=== PATIENT | male | born 1955 ===

== ENCOUNTER 2019-04-22 15:13 | Inpatient (IN) ==
[2019-04-22] MEDS ORDERED: IOPAMIDOL 100 ML BOTTLE IV ONE ×2 (15:14→18:51)
--- NOTE | 2019-04-22 16:14 | Emergency Department Note ---
Abdominal Pain HPI - General Chief Complaint: Abdominal Pain Stated Complaint: abdominal pain, nausea Time Seen by Provider: 04/22/19 15:43 Source: patient Mode of arrival: wheelchair Limitations: no limitations - History of Present Illness HPI Narrative: This 64-year-old male comes emergency room with right lower quadrant pain that began yesterday. He describes it as bad including 9 out of 10 pain although he is able to sit up without difficulties. He had one episode that was not as sharp about 3 months ago. When the pain is really severe and stabbing in nature his right knee wants to come up i.e. flexion at the hip. There has been some associated nausea but no vomiting. No diarrhea. There is no change in the pain with bowel movements or emptying his bladder. He denies dysuria or frequency. Pain is worse with movement or coughing. There sometimes is radiation to the left towards the bellybutton. He has not taken any medications for this. He has had 2 normal bowel movements today. He felt like he had a fever last evening as well as some sweatiness. No chills/shivers. REVIEW OF SYSTEMS: Denies chest pain, shortness of breath, constipation, hematochezia, dysuria, anxiety. Does suffer from chronic depression for which he takes medication. - Related Data Allergies Allergy/AdvReac Type Severity Reaction Status Date / Time ibuprofen AdvReac Mild Rash Verified 04/22/19 15:17 Abdominal Pain PMH - Past Medical History [facility] Narrative: Medical History (Last Updated 04/22/19 @ 16:12 by Ted Mcnally DO) Peripheral arterial disease (Chronic) COPD (chronic obstructive pulmonary disease) (Chronic) Hyperlipidemia (Chronic) Cigarette smoker (Chronic) Hypertension, essential (Chronic) Past Surgical History (Last Updated 04/22/19 @ 16:13 by Ted Mcnally DO) History of femoropopliteal bypass (Acute) S/P above knee amputation (Acute) Family History (Last Updated 04/22/19 @ 16:14 by Ted Mcnally DO) Mother Peripheral arterial disease Father Carotid artery disease Lung cancer Myocardial infarction Psychiatric history: Reports: depression. Denies: anxiety - Social History Smoking status: Current every day smoker Alcohol use: Reports: Rarely Drug use: Reports: none. Denies: marijuana Physical Exam Limitations: no limitations General appearance: alert, cachectic, in no apparent distress, other (quite thin) Head: atraumatic, normocephalic Eye: Present: PERRL, EOMI. Absent: scleral icterus, conjunctival injection ENT: mucous membranes moist, other (edentulous) Neck: Present: trachea midline. Absent: lymphadenopathy, thyromegaly Chest: Present: symmetric chest wall rise Respiratory: Present: other (Lung sounds are quite distant.). Absent: respiratory distress, wheezes, stridor, accessory muscle use, prolonged expiratory phase Cardiovascular: Present: regular rate, normal rhythm, other (Heart sounds are somewhat distant.). Absent: systolic murmur, diastolic murmur Abdominal: Present: soft, tenderness (Right lower quadrant moderate to severe), guarding (Right lower quadrant moderate), rebound (Right lower quadrant moderate). Absent: distention, rigidity, organomegaly, mass Extremities: Present: other (Atrophic right lower extremity. Above the knee amputation on the left.) Back: Present: other (Is able to sit up fairly easily.). Absent: CVA tenderness (R), CVA tenderness (L), spinous process tenderness Neurological: Present: alert, oriented X3 Psychiatric: Present: flat affect. Absent: depressed, agitated, anxious Skin: Present: warm, dry Course Vital Signs Temperature 97.9 F 04/22/19 15:14 Pulse Rate 60 04/22/19 15:14 Respiratory Rate 22 04/22/19 15:14 Blood Pressure 134/77 04/22/19 15:14 Pulse Oximetry (%) 97 04/22/19 15:14 Temperature 97.9 F 04/22/19 15:14 Pulse Rate 54 L 04/22/19 17:16 Respiratory Rate 22 04/22/19 15:14 Blood Pressure 111/67 04/22/19 17:16 Pulse Oximetry (%) 97 04/22/19 17:16 Abdominal Pain - [facility] Narrative Medical decision making narrative: 3 3 8 PM - right lower quadrant pain that is moderately severe. Patient has his appendix. We will do labs and ultrasound. He is quite thin so hopefully ultrasound is all that will be necessary. 5:00 PM approximately - network technical analyst reveals that patient has borderline enlargement of the appendix X 6 mm but was unable to see the tip. There is lots of bowel around the area. It was quite positive on exam as far as pain. Labs include normal white count, CRP less than 0.3, unremarkable CMP except for a calcium of 8.1. 5:10 PM - we will discuss the above with surgeon. Consider additional imaging versus surgical intervention based on above. 5:23 PM - I spoke with Dr. Marshall about circumstances. He recommends going ahead with CT scan of the pelvis and observation this is being arranged. Patient is agreeable. He would like something for pain control. - Lab Data Lab results reviewed: Yes I reviewed the patient's lab results. Result diagrams: 04/22/19 15:30 04/22/19 15:30 Lab Results 04/22/19 04/22/19 04/22/19 Range/Units 15:30 15:30 15:30 WBC 4.8 (4.5-11.0) K/mcL RBC 4.74 (4.50-5.90) M/mcL Hgb 13.4 L (13.5-16.5) g/dL Hct 41.4 (41.0-55.0) % MCV 87.4 (80.0-100.0) fL MCH 28.3 (26.0-34.0) pg MCHC 32.4 (31.0-36.0) g/dL RDW 15.9 H (11.5-14.5) % Plt Count 204 (140-440) K/mcL MPV 8.8 (7.4-10.4) fL Total Counted 100 Seg Neutrophils % 63 (38-78) % Band Neutrophils % 3 (0-10) % Lymphocytes % 20 (15-49) % Monocytes % (Manual) 9 (1-12) % Eosinophils % (Manual) 3 (0-7) % Basophils % (Manual) 1 (0-2) % Reactive Lymphocytes 1 (0-2) % Platelet Estimate Normal (NORMAL) RBC Morphology Normal (NORMAL) Sodium 141 (133-145) mmol/L Potassium 4.1 (3.3-5.1) mmol/L Chloride 104 (96-108) mmol/L Carbon Dioxide 29 (22-30) mmol/L Anion Gap 8.0 (8-16) BUN 10 (8-23) mg/dl Creatinine 0.9 (0.7-1.2) mg/dl GFR Calculation 91 Glucose 96 (70-105) mg/dL Calcium 8.1 L (8.6-10.4) mg/dl Total Bilirubin 0.3 (0.0-1.0) mg/dL AST 23 (0-37) U/l ALT 31 (0-40) U/l Alkaline Phosphatase 98 (39-117) U/L C-Reactive Protein < 0.3 (0.0-0.8) mg/dl Total Protein 5.9 (5.9-8.4) gm/dL Albumin 3.3 (3.2-5.2) gm/dL Globulin 2.6 (2.2-3.7) gm/dL Albumin/Globulin Ratio 1.3 (1.0-2.3) - Radiology Data Radiology results reviewed: Yes I reviewed the patient's radiology results. Disposition Pt seen by INSIDE SALES EXECUTIVE/PA only: No Clinical Impression: Abdominal pain, RLQ, Hypocalcemia Summary: With patient having the degree of discomfort that he has he is being admitted for additional observation and or treatment. CT scan is pending. Dr. Aime Marshall, general surgeon, has kindly patient's care while in hospital. No antibiotics are needed at this point in time. Disposition: Xfer As Outpt/Obs ([facility]) Condition: Fair
[2019-04-22 16:21] LABS: Hematocrit 41.4 % (41.0-55.0); Hemoglobin 13.4 g/dL (13.5-16.5); Mean Cell Volume 87.4 fL (80.0-100.0); Mean Corpuscular HGB Conc 32.4 g/dL (31.0-36.0); Mean Platelet Volume 8.8 fL (7.4-10.4); Platelet Count 204 K/mcL (140-440); RBC 4.74 M/mcL (4.50-5.90); Red Cell Distribution Width 15.9 % (11.5-14.5); WBC 4.8 K/mcL (4.5-11.0)
[2019-04-22 16:44] LABS: Band Neutrophils % 3 % (0-10); Basophils % (Manual) 1 % (0-2); Eosinophils % (Manual) 3 % (0-7); Lymphocytes % 20 % (15-49); Monocytes % (Manual) 9 % (1-12); Platelet Estimate NORMAL (NORMAL); RBC Morphology NORMAL (NORMAL); Reactive Lymphocytes 1 % (0-2); Segmented Neutrophils % 63 % (38-78)
[2019-04-22 16:48] LABS: ALT/SGPT 31 U/l (0-40); AST/SGOT 23 U/l (0-37); Albumin 3.3 gm/dL (3.2-5.2); Albumin/Globulin Ratio 1.3 (1.0-2.3); Alkaline Phosphatase 98 U/L (39-117); Bilirubin,Total 0.3 mg/dL (0.0-1.0); Blood Urea Nitrogen 10 mg/dl (8-23); Calcium 8.1 mg/dl (8.6-10.4); Carbon Dioxide 29 mmol/L (22-30); Chloride 104 mmol/L (96-108); Globulin 2.6 gm/dL (2.2-3.7); Glomerular Filtration Rate 91; Glucose 96 mg/dL (70-105)
--- NOTE | 2019-04-22 17:18 | Ultrasound Report ---
CLINICAL INFORMATION: RLQ abdom pain COMPARISON: None. FINDINGS: There are multiple enlarged mesenteric lymph nodes in the right lower quadrant ranging up to 2.3 cm. Small amount of fluid is seen in this region. Appendix not visualized IMPRESSION: Moderate adenopathy in the right lower quadrant with free fluid. Suggest abdomen /pelvic CT for further evaluation. Appendix not visualized Interpreted and Authenticated by: Sebastián Patino 04/22/19
[2019-04-22] MEDS ORDERED: NALOXONE HCL 0.4 MG/ML VIAL IV PRN (17:25)
[2019-04-22] MEDS ORDERED: ONDANSETRON 4 MG/2 ML VIAL IV PRN (17:25)
[2019-04-22] MEDS ORDERED: 0.9 % SODIUM CHLORIDE 1,000 ML IV SCH (17:30)
--- NOTE | 2019-04-22 18:10 | Cat Scan Report ---
CLINICAL INFORMATION: Right lower quadrant pain COMPARISON: None. TECHNIQUE: [place] use of enteric contrast. 100 cc of Optiray 320 were injected intravenously and 25 seconds later 2.5 mm helical slices were obtained from the mid L4 through the subtrochanteric regions. Following reconstruction, 2.5 mm sagittal, coronal and axial reformations were processed. The exam was reviewed in bone and soft tissue windows. The exam was performed using radiation dose optimization techniques including, but not limited to, automated exposure control, adjustment of mA and/or kV according to patient size and use of iterative reconstruction technique. FINDINGS: The visualized small and large bowel within the false and true pelvis is unremarkable. Appendix is, unfortunately, not identified with certainty but there is is no inflammation in the region of the appendix. No free fluid or free air. Few minimally enlarged mesenteric lymph nodes appreciated Prostate, seminal vesicles and urinary bladder are unremarkable. The abdominal aorta is normal in diameter with very heavy atherosclerotic plaque. There are scattered stenoses within the right common and external iliac arteries ranging up to 50%. the proximal aspect of a left femoral popliteal bypass graft is occluded. [place] left superficial femoral artery is also occluded at the left left leg is ischemic. The proximal limb of the left femoral popliteal bypass graft is widely patent. The left SFA is occluded proximally. IMPRESSION: 1. Appendix not visualized, however there is no inflammation in the region of the appendix. Mild ileus pattern noted 2. Proximal end of the left femoral popliteal bypass graft is occluded. The superficial femoral artery on the left side is also occluded which could result in left leg ischemia. There are scattered stenoses within the right common and external iliac artery ranging up to 50%. Interpreted and Authenticated by: Sebastián Patino 04/22/19
[2019-04-22] MEDS ORDERED: PROMETHAZINE 25 MG/ML VIAL IV PRN (20:03)
[2019-04-22] MEDS ORDERED: ZOLPIDEM 5 MG TABLET PO PRN (20:05)
--- NOTE | 2019-04-22 20:28 | General Surg History&Physical ---
History of Present Illness Patient information: Note initiated : 04/22/19 at 8:26 pm Service Date, if different from initiated Date: [] Patient: Jayjay Kirkland a 64 y/o M admitted on 04/22/19 for abdominal pain, nausea. Chief Complaint: [] HPI: Mr. Kirkland is a 64 year old M admitted with abdominal pain. The patient had onset of right lower quadrant and right subcostal abdominal pain on yesterday. He had nausea but no vomiting. He gives a history of having 70 pound weight loss over the past 4 months. He states that he has regular bowel movements. He does have postprandial crampy abdominal pain that lasts up to 10-15 minutes after he eats. This is usually of diffuse pain. He denies rectal bleeding and he denies having thin stools. He is admitted for additional testing and follow- up. Review of Systems All systems PM: reviewed and no additional remarkable complaints except as stated (except as noted below) - Constitutional anorexia, fatigue, malaise, weakness, weight loss (70 pound weight loss over 4 months) - EENT Nose, mouth and throat: bleeding gums, dental pain - Cardiovascular chest pain at rest, chest pain with activity, other (chest pain with stress and with activity with last episode of chest pain 2 weeks ago) - Respiratory dyspnea on exertion - Gastrointestinal abdominal pain, cramping, early satiety, heartburn, nausea - Genitourinary nocturia - Musculoskeletal arthralgias - Neurological numbness, paresthesias, restless legs - Psychiatric anxiety, depression, mood swings - Hematologic/Lymphatic no easy bleeding, no easy bruising, no lymphadenopathy (was) Past History Past medical history: Severe peripheral vascular disease. Chronic obstructive lung disease. Hypertension. Coronary artery disease status post myocardial infarction 2 months ago, status post cardiac catheter at [facility] in [place], [place] 2 months ago Past surgical history: Left femoropopliteal bypass graft. Left [id number] amputation. Right femoral-popliteal bypass graft Past family history: Carotid artery disease with stroke. History of lung cancer. Peripheral vascular disease. Coronary artery disease Past social history: Disabled. Tobacco use up to 15 cigarettes per day. Alcohol use Medications and Allergies Home Medications Medication Instructions Recorded Confirmed Type Escitalopram [Lexapro] 10 mg PO DAILY 04/22/19 04/22/19 History Gabapentin [Neurontin] 800 mg PO TID 04/22/19 04/22/19 History Hydrocodone/APAP 7.5/325Mg [[place] 1 tab PO Q4HP PRN 04/22/19 04/22/19 History 7.5-325Mg] Pantoprazole Sodium [Protonix] 40 mg PO BID 04/22/19 04/22/19 History Allergies Allergy/AdvReac Type Severity Reaction Status Date / Time ibuprofen AdvReac Mild Rash Verified 04/22/19 15:17 Exam Temp Pulse Resp BP Pulse Ox 97.9 F 56 L 22 124/70 98 04/22/19 19:05 04/22/19 19:05 04/22/19 19:05 04/22/19 19:05 04/22/19 19:05 - General physical appearance moderate distress, severe pain, cachectic, chronically ill - Eyes PERRL, normal ocular movement - ENT normal pinna, normal nares, normal mucosa, no congestion, decreased hearing, poor fci - Head Head exam IM: Present: atraumatic, normal inspection, normocephalic - Neck no masses, no bruits, trachea midline, no lymphadenopathy, no venous distension - Cardiovascular Cardiovascular exam IM: Present: normal rate and rhythm, RRR, +S1, +S2. Absent: JVD, tachycardia - Respiratory normal expansion, normal respiratory effort, other (distant breath sounds bilaterally but no rales, rubs, rhonchi, no wheezes) - Abdomen Abdomen: Present: soft, tender (severe right upper quadrant and subcostal tenderness; moderately severe epigastric tenderness; moderately severe right lower quadrant tenderness. No palpable masses), bowel sounds, guarding. Absent: masses Hernia: Present: none - Genitourinary Present: normal penis with no external lesions - Integumentary Present: no rash, no growths, no abnormal pigmentation - Neurologic Present: normal coordination, normal sensation - Musculoskeletal Present: other (above knee amputation. Left leg) - Psychiatric Present: oriented to time, oriented to person, oriented to place, speech is normal, memory intact Assessment and Plan (1) Right upper quadrant abdominal pain Upper abdominal ultrasound to evaluate gallbladder. Completion of upper abdominal CT to evaluate stomach and duodenum and colon. Repeat CRP, lactate, and baseline labs in the morning Status: Acute (2) Peripheral vascular disease of lower extremity Status: Acute (3) Abdominal pain, RLQ Status: Acute (4) COPD (chronic obstructive pulmonary disease) Status: Chronic (5) Peripheral arterial disease Hold liquids until sure about potential for operative therapy Status: Chronic Comment: severe (6) Coronary artery disease Obtained report of cardiac catheter done at [facility] 2 months ago and get records of hospitalization of myocardial infarction from 2 months ago. Continue home medications. Check EKG Status: Acute Qualifiers: Coronary Disease-Associated Artery/Lesion type: [place] artery [place] vs. transplanted heart: [place] heart Associated angina: with stable angina Qualified Code(s): I25.118 - Atherosclerotic heart disease of [place] coronary artery with other forms of angina pectoris
[2019-04-22] MEDS ORDERED: GABAPENTIN 300 MG CAPSULE PO SCH (21:00)
[2019-04-22] MEDS: GABAPENTIN 400 MG CAPSULE PO SCH (21:42)
[2019-04-22] MEDS: 0.9 % SODIUM CHLORIDE 1,000 ML IV SCH (21:42)
[2019-04-22] MEDS: AMITRIPTYLINE 10 MG TABLET PO SCH (21:42)
--- NOTE | 2019-04-23 04:19 | XRay Report ---
CLINICAL INFORMATION: COPD and preop COMPARISON: None. FINDINGS: The heart size, mediastinum and pulmonary vessels are unremarkable. The lungs are clear. There are no effusions. The bones and soft tissues are within normal limits. IMPRESSION: Normal chest. Interpreted and Authenticated by: Sebastián Patino 04/23/19
[2019-04-23] MEDS: 0.9 % SODIUM CHLORIDE 1,000 ML IV SCH ×4 (04:46→18:51)
--- NOTE | 2019-04-23 05:14 | Cat Scan Report ---
CLINICAL INFORMATION: Right upper quadrant pain COMPARISON: None. TECHNIQUE: Following water enteric contrast, 80 cc of Isovue-300 were injected intravenously, and 60 seconds later, 0.625 mm helical slices were obtained from the mid heart through the subtrochanteric regions. Following reconstruction, 2.5 mm sagittal, coronal and axial reformatted images were processed and reviewed at bone, lung and soft tissue windows. Five minutes later, 0.625 mm helical slices were obtained from the mid heart through the kidneys and viewed at soft tissue windows.The exam was performed using radiation dose optimization techniques including, but not limited to, automated exposure control, adjustment of the mA and/or kV according to patient size and use of iterative reconstruction technique. FINDINGS: Lung bases show emphysema thickening chronic bronchitis, multiple bullae and scarring. No infiltrates. No effusions. The visualized heart is normal in size and there is moderately heavy calcification in the visualized coronary arteries. Abdominal images show scattered simple cysts throughout the liver ranging up to 15 mm in the left hepatic lobe. There is asymmetric prominence of the lateral segment left hepatic lobe which extends to the left upper quadrant. Gallbladder and bile ducts are normal: CBD is 5 mm. Both kidneys, adrenal glands, spleen and pancreas are normal in size, configuration and attenuation without focal lesion. There is moderately heavy atherosclerotic calcification and fibrofatty plaque in the abdominal aorta which is normal diameter - 18 mm. Aortic branches shows scattered atherosclerotic plaque. There appears to be mild wall thickening of the cecum and proximal ascending colon. This could be an artifact of under distention rather than pathologic infiltration. The remaining visualized colon and small bowel are grossly normal. Appendix not visualized on this upper abdominal exam. There is no free air, free fluid and no adenopathy. Bone windows show no osseous abnormality. IMPRESSION: 1. Mild wall thickening of the cecum and proximal ascending colon which may be artifact of underdistention. Suggest colonoscopy. 2. Scattered hepatic cysts ranging up to 14 mm. 3. COPD 4. Moderate atherosclerotic disease. Please consider aggressive identification and treatment of atherosclerotic risk factors Interpreted and Authenticated by: Sebastián Patino 04/23/19
--- NOTE | 2019-04-23 05:26 | Ultrasound Report ---
CLINICAL INFORMATION: upper abdominal ultrasound COMPARISON: None. FINDINGS: Liver is normal in size, configuration and echotexture with scattered cysts throughout the hepatic parenchyma ranging up to 1.8 cm the left hepatic lobe. Gallbladder and bile ducts are normal: CBD is 5 mm. Pancreas obscured by bowel gas. No free fluid IMPRESSION: Scattered hepatic cysts. The liver, gallbladder bile ducts are, otherwise, normal. Pancreas not visualized Interpreted and Authenticated by: Sebastián Patino 04/23/19
[2019-04-23 05:42] LABS: Basophils # (Auto) 0 K/mcL (0.0-0.3); Basophils % (Auto) 0.7 % (0.0-2.0); Eosinophils # (Auto) 0.5 K/mcL (0.0-0.7); Eosinophils % (Auto) 8.5 % (0.0-7.0); Granulocytes % (Auto) 55.1 % (38.0-78.0); Hematocrit 37.8 % (41.0-55.0); Hemoglobin 12.3 g/dL (13.5-16.5); Lymphocytes # (Auto) 1.4 K/mcL (1.5-4.8); Lymphocytes % (Auto) 25.8 % (15.5-49.0); Mean Cell Volume 88.1 fL (80.0-100.0); Mean Corpuscular HGB Conc 32.4 g/dL (31.0-36.0); Mean Platelet Volume 9.5 fL (7.4-10.4); Monocytes # (Auto) 0.5 K/mcL (0.1-0.9); Monocytes % (Auto) 9.9 % (1.0-12.0); Platelet Count 189 K/mcL (140-440); RBC 4.29 M/mcL (4.50-5.90); Red Cell Distribution Width 16.5 % (11.5-14.5); WBC 5.5 K/mcL (4.5-11.0)
[2019-04-23 05:58] LABS: ALT/SGPT 22 U/l (0-40); AST/SGOT 18 U/l (0-37); Albumin 2.9 gm/dL (3.2-5.2); Albumin/Globulin Ratio 1.3 (1.0-2.3); Alkaline Phosphatase 90 U/L (39-117); Bilirubin,Direct < 0.2 mg/dL (0.0-0.3); Bilirubin,Total 0.4 mg/dL (0.0-1.0); Blood Urea Nitrogen 9 mg/dl (8-23); C-Reactive Protein < 0.3 mg/dl (0.0-0.8); Carbon Dioxide 28 mmol/L (22-30); Chloride 105 mmol/L (96-108); Globulin 2.3 gm/dL (2.2-3.7); Glomerular Filtration Rate 80; Glucose 76 mg/dL (70-105); Lactate Dehydrogenase 210 U/L (94-250); Phosphorous 4.4 mg/dL (2.7-4.5); Triglycerides 112 mg/dl (<150)
[2019-04-23] MEDS: PANTOPRAZOLE 40 MG TABLET PO SCH ×2 (08:33→18:08)
[2019-04-23] MEDS: GABAPENTIN 400 MG CAPSULE PO SCH ×3 (08:33→20:17)
--- NOTE | 2019-04-23 16:42 | General Surgery Progress Note ---
Subjective Patient reports: still having pain, pain is less, flatus, bowel movement, afebrile Narrative: Note initiated : 04/23/19 at 4:42 pm Service Date, if different from initiated Date: [] Patient: Jayjay Kirkland 64 y/o M admitted on 04/22/19 for abdominal pain, nausea. Chief Complaint: [patient still complains of right lower quadrant and right subcostal abdominal pain. He has less nausea. He has passed gas and has, had a bowel movement. There is no rectal bleeding. He denies nausea at this time. Follow-up CT of the upper abdomen last evening was unremarkable for acute process. Upper abdominal ultrasound was negative for gallbladder disease. Serum lactate 0.5, white blood count 5.5, CRP less than 0.3, inpatient panel totally normal.] Objective Temp Pulse Resp BP Pulse Ox 97.8 F 49 L 14 107/59 96 04/23/19 16:00 04/23/19 16:00 04/23/19 16:00 04/23/19 16:00 04/23/19 16:00 - Additional Data Intake & Output - Last 24 hours: Intake & Output 04/21/19 04/22/19 04/23/19 04/24/19 05:59 05:59 05:59 05:59 Intake Total 1000 1000 Output Total 950 800 Balance 50 200 Weight 80 lb - General physical appearance moderate pain, cachectic, chronically ill - Eyes PERRL, normal ocular movement - ENT normal pinna, normal nares, normal mucosa, no hearing loss, no congestion - Neck no masses, no bruits, trachea midline, no lymphadenopathy, no venous distension - Respiratory normal expansion, normal respiratory effort, clear to auscultation - Cardiovascular Cardiovascular exam: Present: normal rate and rhythm, RRR, +S1, +S2. Absent: JVD, tachycardia - Abdomen tender (tenderness in right subcostal region and right lower quadrant; good active bowel sounds; no abdominal distention) - Integumentary no rash, no growths, no abnormal pigmentation - Musculoskeletal other - Psychiatric oriented to time, oriented to person, oriented to place, speech is normal, memory intact - Labs 04/23/19 03:36 04/23/19 03:36 Diabetes panel 04/22/19 04/23/19 Range/Units 15:30 03:36 Sodium 141 142 (133-145) mmol/L Potassium 4.1 4.5 (3.3-5.1) mmol/L Chloride 104 105 (96-108) mmol/L Carbon Dioxide 29 28 (22-30) mmol/L BUN 10 9 (8-23) mg/dl Creatinine 0.9 1.0 (0.7-1.2) mg/dl Glucose 96 76 (70-105) mg/dL Calcium 8.1 L 8.0 L (8.6-10.4) mg/dl AST 23 18 (0-37) U/l ALT 31 22 (0-40) U/l Alkaline Phosphatase 98 90 (39-117) U/L Total Protein 5.9 5.2 L (5.9-8.4) gm/dL Albumin 3.3 2.9 L (3.2-5.2) gm/dL Triglycerides 112 (<150) mg/dl Calcium panel 04/22/19 04/23/19 Range/Units 15:30 03:36 Calcium 8.1 L 8.0 L (8.6-10.4) mg/dl Phosphorus 4.4 (2.7-4.5) mg/dL Albumin 3.3 2.9 L (3.2-5.2) gm/dL Pituitary panel 04/22/19 04/23/19 Range/Units 15:30 03:36 Sodium 141 142 (133-145) mmol/L Potassium 4.1 4.5 (3.3-5.1) mmol/L Chloride 104 105 (96-108) mmol/L Carbon Dioxide 29 28 (22-30) mmol/L BUN 10 9 (8-23) mg/dl Creatinine 0.9 1.0 (0.7-1.2) mg/dl Glucose 96 76 (70-105) mg/dL Calcium 8.1 L 8.0 L (8.6-10.4) mg/dl Adrenal panel 04/22/19 04/23/19 Range/Units 15:30 03:36 Sodium 141 142 (133-145) mmol/L Potassium 4.1 4.5 (3.3-5.1) mmol/L Chloride 104 105 (96-108) mmol/L Carbon Dioxide 29 28 (22-30) mmol/L BUN 10 9 (8-23) mg/dl Creatinine 0.9 1.0 (0.7-1.2) mg/dl Glucose 96 76 (70-105) mg/dL Calcium 8.1 L 8.0 L (8.6-10.4) mg/dl Total Bilirubin 0.3 0.4 (0.0-1.0) mg/dL AST 23 18 (0-37) U/l ALT 31 22 (0-40) U/l Alkaline Phosphatase 98 90 (39-117) U/L Total Protein 5.9 5.2 L (5.9-8.4) gm/dL Albumin 3.3 2.9 L (3.2-5.2) gm/dL Assessment and Plan (1) Right upper quadrant abdominal pain Status: Acute Assessment and plan: Start dicyclomine 4 times daily. Start clear liquids Current Visit: Yes (2) Peripheral vascular disease of lower extremity Status: Acute Current Visit: Yes (3) Abdominal pain, RLQ Status: Acute Current Visit: Yes (4) COPD (chronic obstructive pulmonary disease) Status: Chronic Current Visit: No (5) Peripheral arterial disease Problem details: severe Status: Chronic Current Visit: No (6) Coronary artery disease Status: Acute Current Visit: Yes - Time Spent With Patient Total time spent is greater than 50% in coordination of care (as documented) at patient's floor/unit and/or counseling patient:
[2019-04-23] MEDS: DICYCLOMINE 20 MG TABLET PO SCH ×2 (18:08→20:17)
[2019-04-23] MEDS: HYDROmorphone 2 MG/ML VIAL IV PRN (19:31)
[2019-04-23] MEDS: AMITRIPTYLINE 10 MG TABLET PO SCH (20:17)
[2019-04-24] MEDS: 0.9 % SODIUM CHLORIDE 1,000 ML IV SCH ×5 (01:42→11:56)
[2019-04-24 05:27] LABS: Basophils # (Auto) 0 K/mcL (0.0-0.3); Basophils % (Auto) 0.9 % (0.0-2.0); Eosinophils # (Auto) 0.4 K/mcL (0.0-0.7); Eosinophils % (Auto) 7.5 % (0.0-7.0); Granulocytes % (Auto) 61.9 % (38.0-78.0); Hematocrit 35.2 % (41.0-55.0); Hemoglobin 11.3 g/dL (13.5-16.5); Lymphocytes # (Auto) 1.2 K/mcL (1.5-4.8); Lymphocytes % (Auto) 23.3 % (15.5-49.0); Mean Cell Volume 88.7 fL (80.0-100.0); Mean Corpuscular HGB Conc 32.1 g/dL (31.0-36.0); Mean Platelet Volume 8.7 fL (7.4-10.4); Monocytes # (Auto) 0.3 K/mcL (0.1-0.9); Monocytes % (Auto) 6.4 % (1.0-12.0); Platelet Count 173 K/mcL (140-440); RBC 3.97 M/mcL (4.50-5.90); Red Cell Distribution Width 16.2 % (11.5-14.5); WBC 5.4 K/mcL (4.5-11.0)
[2019-04-24 05:55] LABS: ALT/SGPT 20 U/l (0-40); AST/SGOT 17 U/l (0-37); Albumin 2.6 gm/dL (3.2-5.2); Albumin/Globulin Ratio 1.2 (1.0-2.3); Alkaline Phosphatase 78 U/L (39-117); Bilirubin,Direct < 0.2 mg/dL (0.0-0.3); Bilirubin,Total 0.4 mg/dL (0.0-1.0); Blood Urea Nitrogen 8 mg/dl (8-23); Calcium 7.2 mg/dl (8.6-10.4); Carbon Dioxide 25 mmol/L (22-30); Chloride 108 mmol/L (96-108); Globulin 2.1 gm/dL (2.2-3.7); Glomerular Filtration Rate 100; Glucose 61 mg/dL (70-105); Lactate Dehydrogenase 147 U/L (94-250); Phosphorous 3.8 mg/dL (2.7-4.5); Triglycerides 76 mg/dl (<150); Uric Acid 5.6 mg/dL (2.5-8.0)
--- NOTE | 2019-04-24 07:15 | XRay Report ---
CLINICAL INFORMATION: COPD and preop COMPARISON: 04/22/2019 FINDINGS: Heart size, mediastinum and pulmonary vessels are normal. COPD changes with minor atelectasis left base. No infiltrates. No effusions IMPRESSION: Stable COPD. No acute disease Interpreted and Authenticated by: Sebastián Patino 04/24/19
[2019-04-24] MEDS: PANTOPRAZOLE 40 MG TABLET PO SCH ×2 (07:58→16:58)
[2019-04-24] MEDS: HYDROmorphone 2 MG/ML VIAL IV PRN ×2 (07:58→12:01)
[2019-04-24] MEDS: DICYCLOMINE 20 MG TABLET PO SCH ×4 (09:42→20:54)
[2019-04-24] MEDS: GABAPENTIN 400 MG CAPSULE PO SCH ×3 (09:42→20:54)
--- NOTE | 2019-04-24 12:24 | General Surgery Progress Note ---
Subjective Patient reports: feels better, pain is less, tolerating liquids well, flatus, bowel movement, afebrile Narrative: Note initiated : 04/24/19 at 12:22 pm Service Date, if different from initiated Date: [] Patient: Jayjay Kirkland 64 y/o M admitted on 04/22/19 for abdominal pain, nausea. Chief Complaint: [patient feels better. Most of his right upper quadrant discomfort has resolved. He denies nausea. He does complain of some pelvic pressure and dysuria with voiding. He still has some right flank pain. He is passed gas and had bowel movements. He remains afebrile. White blood count 5.4, hemoglobin 11.3, hematocrit 30 5..] Objective Temp Pulse Resp BP Pulse Ox 98.0 F 48 L 20 108/65 95 04/24/19 06:21 04/24/19 04:17 04/24/19 06:21 04/24/19 06:21 04/24/19 06:21 - Additional Data Intake & Output - Last 24 hours: Intake & Output 04/22/19 04/23/19 04/24/19 04/25/19 05:59 05:59 05:59 05:59 Intake Total 1000 2650 3320 Output Total 950 1300 325 Balance 50 1350 2995 Weight 80 lb 87 lb - General physical appearance moderate pain, cachectic, chronically ill - Eyes PERRL, normal ocular movement - ENT normal pinna, normal nares, normal mucosa, no congestion, decreased hearing - Neck no masses, no bruits, trachea midline, no lymphadenopathy, no venous distension - Respiratory normal expansion, normal respiratory effort, clear to auscultation - Cardiovascular Cardiovascular exam: Present: normal rate and rhythm, bradycardia, RRR, +S1, +S2. Absent: JVD, tachycardia - Abdomen tender (mild tenderness lateral right lower quadrant and right flank; minimal tenderness right upper quadrant; good active bowel sounds) - Integumentary no rash, no growths, no abnormal pigmentation - Musculoskeletal other (. Left [id number] amputation; atrophy, right lower extremity; poor peripheral perfusion, right lower extremity) - Psychiatric oriented to time, oriented to person, oriented to place, speech is normal, memory intact - Labs 04/24/19 04:15 04/24/19 04:15 Diabetes panel 04/24/19 Range/Units 04:15 Sodium 141 (133-145) mmol/L Potassium 4.1 (3.3-5.1) mmol/L Chloride 108 (96-108) mmol/L Carbon Dioxide 25 (22-30) mmol/L BUN 8 (8-23) mg/dl Creatinine 0.7 (0.7-1.2) mg/dl Glucose 61 L (70-105) mg/dL Calcium 7.2 L (8.6-10.4) mg/dl AST 17 (0-37) U/l ALT 20 (0-40) U/l Alkaline Phosphatase 78 (39-117) U/L Total Protein 4.7 L (5.9-8.4) gm/dL Albumin 2.6 L (3.2-5.2) gm/dL Triglycerides 76 (<150) mg/dl Calcium panel 04/24/19 Range/Units 04:15 Calcium 7.2 L (8.6-10.4) mg/dl Phosphorus 3.8 (2.7-4.5) mg/dL Albumin 2.6 L (3.2-5.2) gm/dL Pituitary panel 04/24/19 Range/Units 04:15 Sodium 141 (133-145) mmol/L Potassium 4.1 (3.3-5.1) mmol/L Chloride 108 (96-108) mmol/L Carbon Dioxide 25 (22-30) mmol/L BUN 8 (8-23) mg/dl Creatinine 0.7 (0.7-1.2) mg/dl Glucose 61 L (70-105) mg/dL Calcium 7.2 L (8.6-10.4) mg/dl Adrenal panel 04/24/19 Range/Units 04:15 Sodium 141 (133-145) mmol/L Potassium 4.1 (3.3-5.1) mmol/L Chloride 108 (96-108) mmol/L Carbon Dioxide 25 (22-30) mmol/L BUN 8 (8-23) mg/dl Creatinine 0.7 (0.7-1.2) mg/dl Glucose 61 L (70-105) mg/dL Calcium 7.2 L (8.6-10.4) mg/dl Total Bilirubin 0.4 (0.0-1.0) mg/dL AST 17 (0-37) U/l ALT 20 (0-40) U/l Alkaline Phosphatase 78 (39-117) U/L Total Protein 4.7 L (5.9-8.4) gm/dL Albumin 2.6 L (3.2-5.2) gm/dL Assessment and Plan (1) Right upper quadrant abdominal pain Status: Acute Assessment and plan: Start dicyclomine 4 times daily. Advance to soft diet. Check urine with C&S. Saline lock IV and start oral pain meds Current Visit: Yes (2) Peripheral vascular disease of lower extremity Status: Acute Current Visit: Yes (3) Abdominal pain, RLQ Status: Acute Current Visit: Yes (4) COPD (chronic obstructive pulmonary disease) Status: Chronic Current Visit: No (5) Peripheral arterial disease Problem details: severe Status: Chronic Current Visit: No (6) Coronary artery disease Status: Acute Current Visit: Yes - Time Spent With Patient Total time spent is greater than 50% in coordination of care (as documented) at patient's floor/unit and/or counseling patient:
[2019-04-24] MEDS: oxyCODONE/APAP 10/325MG TABLET PO PRN ×2 (13:46→20:54)
[2019-04-24] MEDS: AMITRIPTYLINE 10 MG TABLET PO SCH (20:53)
[2019-04-25] MEDS: oxyCODONE/APAP 10/325MG TABLET PO PRN ×2 (02:07→06:05)
[2019-04-25] MEDS: GABAPENTIN 400 MG CAPSULE PO SCH ×2 (08:41→15:05)
[2019-04-25] MEDS: PANTOPRAZOLE 40 MG TABLET PO SCH (08:41)
[2019-04-25] MEDS: DICYCLOMINE 20 MG TABLET PO SCH ×2 (08:42→14:33)
[2019-04-25 09:59] LABS: Appearance,Urine CLEAR; Bacteria,Urine 0 /hpf (0); Bilirubin,Urine NEG (NEG); Color,Urine STRAW; Culture Indicated,Urine NO; Glucose,Urine (UA) NEGATIVE (NEG); Ketones,Urine NEG (NEG); Leukocyte Esterase,Urine NEG /uL (NEG); Nitrate,Urine NEG (NEG); Protein,Urine NEG (NEG); Specific Gravity,Urine 1.006 (1.000-1.035); Urine Blood 0.03 mg/dL (<0.03); Urine RBC < 1 /hpf (0-1); Urine Squamous Epithelial Cell 0 /hpf (0-4); Urine WBC < 1 /hpf (0-4); Urobilinogen,Urine NEG (NEG)
--- NOTE | 2019-04-25 14:52 | Discharge Summary ---
Providers - Providers Patient information: Note initiated : 04/25/19 at 2:45 pm Service Date, if different from initiated Date: [] Patient: Jayjay Kirkland 64 y/o M admitted on 04/24/19 for abdominal pain, nausea. Chief Complaint: [] Date of admission: 04/22/19 Discharge date: 04/25/19 Attending physician: Ema Marshall Hospitalization Hospital course: 64-year-old male admitted for evaluation of abdominal pain. He had onset of right lower quadrant and right subcostal pain on April 25. He had nausea but no vomiting. His bowel movements have been regular. He states that he has crampy abdominal pain that lasts up to 15 minutes after he eats. The pain is usually diffuse. He has not had a change in bowel habits, and he denies rectal bleeding. He states that he lost about 70 pounds over 4 months. Present weight is 88 pounds. Patient was admitted. CT of the pelvis that was done in the ER was nonrevealing except for severe peripheral vascular disease. His CRP and white blood count were normal. His liver panel was normal. Follow-up upper abdominal ultrasound revealed no abnormality. Since all studies were negative. The patient was treated with dicyclomine and oral analgesics. His symptoms improved and he was able to eat diet without difficulty. There is some consideration that he is having mesenteric ischemia due to severe diffuse peripheral vascular disease. He is not an operative candidate for correction of this process. His serum lactates were normal 2. Patient is improved and is safe to be discharged home. He can be followed up with his primary care provi jocelyn. Discharge diagnosis: chronic abdominal pain Secondary discharge diagnosis: Severe peripheral arterial disease. Chronic obstructive lung disease. Coronary artery disease Reason for admission: recurrent abdominal pain and weight loss Procedures: None Pertinent studies/significant findings: CT of abdomen and pelvis and upper abdominal ultrasound Complications: None Exam Temp Pulse Resp BP Pulse Ox 98.4 F 61 16 139/80 91 04/25/19 11:23 04/25/19 03:42 04/25/19 11:23 04/25/19 11:23 04/25/19 11:23 - General physical appearance moderate pain, cachectic, chronically ill - Eyes PERRL, normal ocular movement, other (poor vision bilaterally) - ENT normal pinna, normal nares, normal mucosa, no hearing loss, no congestion - Head Head exam IM: Present: atraumatic, normal inspection, normocephalic - Neck no masses, no bruits, trachea midline, no lymphadenopathy, no venous distension - Cardiovascular Cardiovascular exam IM: Present: normal rate and rhythm, RRR, +S1, +S2. Absent: JVD, tachycardia Cardiovascular: Weak pulses in the right lower extremity with atrophy of musculature of right lower extremity and poor capillary refill - Respiratory normal expansion, normal respiratory effort, other (decrease breath sounds bilaterally but no rales, rhonchi, no wheezes) - Abdomen Abdomen: Present: soft, tender (mild tenderness in right subcostal and right lower quadrant without masses and without guarding; good active bowel sounds), bowel sounds Hernia: Present: none - Genitourinary Present: normal penis with no external lesions - Integumentary Present: no rash, no growths, no abnormal pigmentation - Neurologic Present: normal coordination, normal sensation - Musculoskeletal Present: other ([id number]-ortt amputation. Left lower extremity) - Psychiatric Present: oriented to time, oriented to person, oriented to place, speech is normal, memory intact Discharge Plan - Patient/Caregiver Discharge Instructions Activity: increase activity as tolerated Diet: Regular Diet Prescriptions: Dicyclomine 20 mg PO QID #120 tab - Follow up Plan Disposition: Home, Self-Care Prognosis: Fair Rehab Potential: Fair I certify that the patient requires SNF services.: No Overall status at discharge: patient is progressing back to baseline Pending Studies Resuscitation Status Limited Code Diet GI Soft/Transitional Start SunApr 25 1353 Amitriptyline HCl (Elavil) 10 mg PO [facility] Last Admin: 04/24/19 20:53 Dose: 10 mg Documented by: Admin: 04/23/19 20:17 Dose: 10 mg Documented by: Admin: 04/22/19 21:42 Dose: 10 mg Documented by: ISIS Dicyclomine HCl (Dicyclomine) 20 mg PO QID [facility] Last Admin: 04/25/19 14:33 Dose: 20 mg Documented by: [email or web address] Admin: 04/25/19 08:42 Dose: 20 mg Documented by: [email or web address] Admin: 04/24/19 20:54 Dose: 20 mg Documented by: Admin: 04/24/19 16:58 Dose: 20 mg Documented by: [email or web address] Admin: 04/24/19 13:45 Dose: 20 mg Documented by: [email or web address] Admin: 04/24/19 09:42 Dose: 20 mg Documented by: Admin: 04/23/19 20:17 Dose: 20 mg Documented by: Admin: 04/23/19 18:08 Dose: 20 mg Documented by: MIRLANDE Gabapentin (Neurontin) 800 mg PO TID [facility] Last Admin: 04/25/19 08:41 Dose: 800 mg Documented by: Admin: 04/24/19 20:54 Dose: 800 mg Documented by: Admin: 04/24/19 15:12 Dose: 800 mg Documented by: Admin: 04/24/19 09:42 Dose: 800 mg Documented by: Admin: 04/23/19 20:17 Dose: 800 mg Documented by: Admin: 04/23/19 14:31 Dose: Not Given Documented by: Admin: 04/23/19 08:33 Dose: Not Given Documented by: Admin: 04/22/19 21:42 Dose: 800 mg Documented by: ISIS Hydromorphone HCl (Dilaudid) 1 mg IV Q4HP PRN PRN Reason: PAIN LEVEL > 6 Last Admin: 04/24/19 12:01 Dose: 1 mg Documented by: Admin: 04/24/19 07:58 Dose: 1 mg Documented by: Admin: 04/23/19 19:31 Dose: 1 mg Documented by: ERIS Oxycodone/Acetaminophen (Percocet 10-325mg) 1 tab PO Q4HP PRN PRN Reason: PAIN LEVEL 3-6 Last Admin: 04/25/19 06:05 Dose: 1 tab Documented by: Admin: 04/25/19 02:07 Dose: 1 tab Documented by: Admin: 04/24/19 20:54 Dose: 1 tab Documented by: Admin: 04/24/19 13:46 Dose: 1 tab Documented by: [email or web address] Pantoprazole Sodium (Protonix) 40 mg PO BIDAC [facility] Last Admin: 04/25/19 08:41 Dose: 40 mg Documented by: [email or web address] Admin: 04/24/19 16:58 Dose: 40 mg Documented by: [email or web address] Admin: 04/24/19 07:58 Dose: 40 mg Documented by: [email or web address] Admin: 04/23/19 18:08 Dose: 40 mg Documented by: Admin: 04/23/19 08:33 Dose: Not Given Documented by: MIRLANDE Zolpidem Tartrate (Ambien) 10 mg PO HSP PRN PRN Reason: Insomnia Last Admin: 04/22/19 21:43 Dose: 10 mg Documented by: ISIS Shift Summary 04/25/19 04:18 Shift Summary by Mike Barcenas Pt has rested well tonight. He has not been out of bed again this shift - turns & repositions himself in bed (I). Voids per urinal. 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 RLQ ABD pain 06/17 @ beginning of the shift - Percocet 10 (1) given @ 2054 & again @ 0205. No skin issues. Saline lock to his RT F/A -flushed & patent. He is A&O x4, calm, pleasant, & cooperative. Initialized on 04/25/19 04:18 - END OF NOTE
== END 2019-04-25 16:05 | disposition home or self-care (01) | DRG 300 ==
LOC: ED 15:13 → MEDSUR 15:13
PROVIDERS: ADMIT Family Medicine Adult Medicine; ATTEND Family Medicine Adult Medicine